=== PATIENT | female | born 1960 ===

== ENCOUNTER 2017-01-30 14:38 | Emergency (ER) | payer OTHER ==
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
== END 2017-01-30 19:00 | disposition home or self-care (01) ==
LOC: C.ER 14:38
DX: S13.4XXA Sprain of ligaments of cervical spine, initial encounter (principal); V49.50XA Passenger injured in collision with unspecified motor vehicles in traffic accident, initial encounter; R07.89 Other chest pain
CPT/HCPCS: 71020; 72126; 96372; 99281; J1885